=== PATIENT | female | born 1965 | race African-American/Black ===

== ENCOUNTER 2016-12-26 10:30 | Emergency (ER) | payer OTHER ==
[~2016-12-26] VITALS: Ht 165.1 cm; Wt 72.7 kg
[~2016-12-26 10:30] MED LIST: LISI-660 PO
[2016-12-26 12:59] VITALS: BP 146/83
== END 2016-12-26 13:36 | disposition home or self-care (01) ==
LOC: EMS 10:31
DX: S16.1XXA Strain of muscle, fascia and tendon at neck level, initial encounter (principal); S46.912A Strain of unspecified muscle, fascia and tendon at shoulder and upper arm level, left arm, initial encounter; I10 Essential (primary) hypertension; E11.9 Type 2 diabetes mellitus without complications; Z90.710 Acquired absence of both cervix and uterus; Z88.6 Allergy status to analgesic agent; V49.9XXA Car occupant (driver) (passenger) injured in unspecified traffic accident, initial encounter; Y93.89 Activity, other specified; Y92.413 State road as the place of occurrence of the external cause; Y99.9 Unspecified external cause status
CPT/HCPCS: 72040; 99284

== ENCOUNTER 2020-01-27 23:44 | Emergency (ER) | payer OTHER ==
[~2020-01-27] VITALS: Ht 165.1 cm; Wt 72.7 kg
[2020-01-27 23:48] VITALS: BP 194/109
== END 2020-01-28 01:07 | disposition left against medical advice (07) ==
LOC: EMS 23:46
DX: M79.603 Pain in arm, unspecified (principal)